=== PATIENT | female | born 1970 ===

== ENCOUNTER 2019-07-06 11:47 | Emergency (ER) | payer BC ==
[2019-07-06 12:27] VITALS: BP 160/93
--- NOTE | 2019-07-06 13:08 | UC ---
Abdominal Pain Female HPI - HPI Summary HPI Summary: Pt is a 48 yo female presents to with SO. Pt with urinary sx including pressure and frequency. She was started on Bactrim on 07/01. Pt states her sx persisted - she contacted PCP who changed to Omnicef. Pt states her urinary sx have improved but over last 48 hours she has had intermittent episodes of severe left flank pain. states sharp pain, wakes from sleep, gets nausea, can't get comfortable. pt has taken some ibuprofen with short term improvement. No history of similar. Pt's mom with renal colic. Current menses. no abd surgeries currently little pain medications reviewed this visit Of note - pt's urine + klebsiella - sensitive to both bactrim and omnicef - History of Current Complaint Chief Complaint: UCBackPain Stated Complaint: BACK PAIN Time Seen by Provider: 07/06/19 13:04 Hx Obtained From: Patient, Family/Cleaning Porter, Medical Records Hx Last Menstrual Period: now Pain Intensity: 6 Allergies/Adverse Reactions: Allergies Allergy/AdvReac Type Severity Reaction Status Date / Time ciprofloxacin [From Cipro] Allergy Rash And Verified 07/06/19 13:52 Itching Penicillins Allergy Rash Verified 07/06/19 13:52 PMH/Surg Hx/FS Hx/Imm Hx Previously Healthy: Yes - Surgical History Surgical History: Yes Surgery Procedure, Year, and Place: [place] [facility] [place] Family History Known Family History: Positive: Other - mom with renal colic - Social History Occupation: Employed Full-time Lives: With Family Alcohol Use: Occasionally Substance Use Type: None Smoking Status (MU): Never Smoked Tobacco Review of Systems All Other Systems Reviewed And Are Negative: Yes Constitutional: Positive: Negative Skin: Positive: Negative Gastrointestinal: Positive: Nausea Genitourinary: Positive: Dysuria, Urgency Physical Exam - Summary Physical Exam Summary: Vital Signs Reviewed: Yes A+Ox3, no distress Eyes: Conjunctiva Clear, JORGE. EOM intact and full ENT: Hearing grossly normal TM x 2 clear, mmoist, uvula midline, no exudate, no erythema Neck: Positive: Supple Respiratory: Positive: No respiratory distress, No accessory muscle use + CTA throughout no w/r Cardiovascular: RRR nl s1, s2 no m/r CBT <2 sec abd soft + BS nt/nd no guarding, no distension, no cva Musculoskeletal Exam: KEYS x 4 without difficulty Strength Intact, ROM Intact Neurological: Positive: Alert, + sensation throughout Psychological: Positive: Normal Response To crystal evaluator Skin: Positive: no rash, no ecchymosis Triage Information Reviewed: Yes Vital Signs: Initial Vital Signs Temp 97.9 F 07/06/19 12:22 Pulse 106 07/06/19 12:22 Resp 18 07/06/19 12:22 BP 160/93 07/06/19 12:22 Pulse Ox 100 07/06/19 12:22 Abd Pain Female Course/Dx - Course Course Of Treatment: Pt presents with intermittent left flank pain x 2 days pt is on omnicef for klebsiella UTI -was on bactrim, but sx persisted. culutre shows sensitivity to both abx no fever, chills. no h/o renal stones - mom does concerned pt may have infected stone recommend to ED for imaging and labs pt in agreement with plain report to Antonio - charge nurse in ED BP elevated - likely related to condition on presentation - recommend fu with pcp - Differential Dx/Diagnosis Provider Diagnosis: Flank pain, UTI due to Klebsiella species Discharge ED - Sign-Out/Discharge Documenting (check all that apply): Patient Departure All imaging exams completed and their final reports reviewed: No Studies - Discharge Plan Condition: Stable Disposition: HOME-RECOMMEND TO ED Patient Education Materials: Urinary Tract Infection in Women (ED), Flank Pain (ED) Referrals: Arsh Smalls MD [Primary Care Provider] - Additional Instructions: The doctor that evaluated you today thinks that you need additional testing that can be completed the emergency department. It is recommended that you go directly to emergency department for further evaluation. This evaluation may include blood work or imaging. This testing will be directed and decided by the provider that evaluate you at the emergency department. If pain becomes worse, you feel lightheaded, you have uncontrolled vomiting, or you have any other concerns while you are being driven to emergency department as recommended to pullover and contact 911. - Billing Disposition and Condition Condition: STABLE Disposition: Home-Recommend to ED
== END 2019-07-06 13:28 | disposition home health service (06) ==
LOC: UCEAST 11:47
DX: R10.9 Unspecified abdominal pain (principal); N39.0 Urinary tract infection, site not specified; B96.1 Klebsiella pneumoniae [K. pneumoniae] as the cause of diseases classified elsewhere; R11.0 Nausea; Z88.1 Allergy status to other antibiotic agents; Z88.0 Allergy status to penicillin
CPT/HCPCS: 81003; 84702; 87086; 99212; G0463

== ENCOUNTER 2019-07-06 13:46 | Observation (INO) | payer BC ==
[2019-07-06] MEDS ORDERED: Ketorolac INJ* 30 MG/ML 1 ML VIAL IV PUSH ONE (14:42)
--- NOTE | 2019-07-06 14:43 | ED ---
Back Pain - HPI Summary HPI Summary: Pt. is a 48 y.o female who presents to the ER for left-sided flank pain times one day. Patient states she was having symptoms of dysuria 5 days ago and saw her family doctor. She was started on Bactrim and then switched to cefdinir. Urine culture from 07/01 growing greater than 100,000 Klebsiella susceptible to Bactrim and cefdinir. Patient states she developed left flank pain today and initially went to convenient care was referred to the ER. Patient notes chills and nausea. Past medical history of obesity. Symptoms are moderate in severity. No current modifying factors. - History of Current Complaint Chief Complaint: EDFlankPain Stated Complaint: FLANK PAIN PER PT Time Seen by Provider: 07/06/19 14:31 Hx Obtained From: Patient Hx Last Menstrual Period: now Pain Intensity: 8 - Allergies/Home Medications Allergies/Adverse Reactions: Allergies Allergy/AdvReac Type Severity Reaction Status Date / Time ciprofloxacin [From Cipro] Allergy Rash And Verified 07/06/19 13:52 Itching Penicillins Allergy Rash Verified 07/06/19 13:52 PMH/Surg Hx/FS Hx/Imm Hx Previously Healthy: Yes Cardiovascular History: Denies: Other Cardiovascular Problems/Disorders Respiratory History: Denies: Other Respiratory Problems/Disorders GI History: Reports: Hx Gastroesophageal Reflux Disease - NOT FREQUENT Denies: Other GI Disorders History: Denies: Other Problems/Disorders Sensory History: Denies: Hx Contacts or Glasses, Hx Hearing Aid Opthamlomology History: Denies: Hx Contacts or Glasses Neurological History: Reports: Hx Migraine - 2-3 PER MONTH Denies: Other Neuro Impairments/Disorders - Surgical History Surgery Procedure, Year, and Place: LASER SURGERY TO FACE, 2007, [facility] – [place] Hx Anesthesia Reactions: No Infectious Disease History: No Infectious Disease History: Denies: Traveled Outside the [place] in Last 30 Days - Family History Known Family History: Positive: Non-Contributory - Social History Occupation: Unemployed Lives: With Family Alcohol Use: Occasionally Substance Use Type: Reports: None Smoking Status (MU): Never Smoked Tobacco Review of Systems Positive: Chills. Negative: Fever Eyes: Negative ENT: Negative Cardiovascular: Negative Respiratory: Negative Positive: Abdominal Pain, Nausea. Negative: Vomiting, Diarrhea Positive: flank pain. Negative: dysuria, discharge, frequency, hematuria Skin: Negative Neurological: Negative All Other Systems Reviewed And Are Negative: Yes Physical Exam Triage Information Reviewed: Yes Vital Signs On Initial Exam: Initial Vitals Temp Pulse Resp BP Pulse Ox 99.6 F 121 19 149/98 99 07/06/19 13:49 07/06/19 13:49 07/06/19 13:49 07/06/19 13:49 07/06/19 13:49 Vital Signs Reviewed: Yes Appearance: Positive: Well-Appearing - Pt. sitting on side of bed, appears mildly uncomfortable. Family member present. Skin: Positive: Warm, Dry Head/Face: Positive: Normal Head/Face Inspection Eyes: Positive: Normal, EOMI Neck: Positive: Supple Respiratory/Lung Sounds: Positive: Clear to Auscultation, Breath Sounds Present Cardiovascular: Positive: Normal, RRR Abdomen Description: Positive: Other: - Obese. Abd. is soft without tenderness. Mild left sided flank pain. Neurological: Positive: Normal, CN Intact II-III Psychiatric: Positive: Affect/Mood Appropriate Procedures - Sedation Patient Received Moderate/Deep Sedation with Procedure: No Diagnostics - Vital Signs Vital Signs Temp Pulse Resp BP Pulse Ox 07/06/19 13:49 99.6 F 121 19 149/98 99 - Laboratory Result Diagrams: 07/06/19 14:51 07/06/19 14:51 Lab Statement: Any lab studies that have been ordered have been reviewed, and results considered in the medical decision making process. Back Pain Course/Dx - Course Course Of Treatment: Patient with left flank pain. Tachycardic in the 120s, low -grade fever 99.6F. Patient was started on IV fluids given a dose of Toradol. CT abd/pelvis per radiology: IMPRESSION: Hepatic cysts. Left hydronephrosis with 3 mm calculus in the distal left ureter. Nonobstructing 1.5 cm staghorn calculi lower pole right kidney. CBC normal. Minimally elevated CRP. U/A is negative bacteria and nitrates but large leukocytes. Case discussed with Dr. Albarado, urology. He is concerned with ongoing sxs given 5 days of PO antibiotics. He would like pt. to have IV gent and rocephin and will plan to take to the OR tonight. Case discussed with Dr. Esposito, and she accepts pt. for admission. - Diagnoses Differential Diagnosis/HQI/PQRI: Positive: Renal Colic, Strain, Sprain Provider Diagnoses: UTI (urinary tract infection), Urolithiasis Discharge ED - Sign-Out/Discharge Documenting (check all that apply): Patient Departure - Discharge Plan Condition: Stable Disposition: ADMITTED TO [facility] Referrals: Arsh Smalls MD [Primary Care Provider] - - Billing Disposition and Condition Condition: STABLE Disposition: Admitted to [facility] - Attestation Statements Provider Attestation: I was available for consult. This patient was seen by the DERRICK. The patient was not presented to, seen by, or examined by me. Christofer Hobson MD
[2019-07-06 14:56] LABS: ABS Lymphocytes 0.9 10^3/ul (1.0-4.8); ABS Monocytes 0.6 10^3/ul (0-0.8); Eosinophil % 0.3 %; Hematocrit 40 % (35-47); Hemoglobin 13.3 g/dL (12.0-16.0); Lymphocyte % 10.7 %; Mean Corpuscular HGB Conc 33 g/dL (31-36); Mean Corpuscular Hemoglobin 25 pg (27-31); Mean Corpuscular Volume 76 fL (80-97); Mean Platelet Volume 8.2 fL (7.4-10.4); Nucleated Red Blood Cells % 0.1; Platelet Count 256 10^3/uL (150-450); Red Blood Count 5.23 10^6 /uL (3.70-4.87); Red Cell Distribution Width 15 % (10-15); White Blood Count 8.6 10^3/uL (3.5-10.8)
[2019-07-06 15:16] LABS: ALT 14 U/L (7-52); AST 13 U/L (13-39); Albumin 3.8 g/dL (3.2-5.2); Albumin/Globulin Ratio 1.4 (1-3); Alkaline Phosphatase 67 U/L (34-104); Anion Gap 6 mmol/L (2-11); BUN/Creatinine Ratio 18.8 (8-20); Blood Urea Nitrogen 12 mg/dL (6-24); CO2 Carbon Dioxide 23 mmol/L (22-32); Calcium 8.7 mg/dL (8.6-10.3); Chloride 109 mmol/L (101-111); EGFR African American 120.4 (>60); EGFR Non-African American 99.5 (>60); Globulin 2.7 g/dL (2-4); Glucose 103 mg/dL (70-100); Potassium 3.7 mmol/L (3.5-5.0); Sodium 138 mmol/L (135-145); Total Protein 6.5 g/dL (6.4-8.9)
[2019-07-06 15:22] LABS: HCG Pregnancy < 0.60 mIU/mL
[2019-07-06] MEDS ORDERED: NS 0.9% 1000 ML** 1,000 ML IV ONE ×2 (15:22→16:27)
[2019-07-06 16:01] LABS: Urine Appearance Cloudy; Urine Bacteria Absent (Absent); Urine Bilirubin Negative (Negative); Urine Blood 3+ (Negative); Urine Color Red; Urine Glucose Negative (Negative); Urine Ketones Negative (Negative); Urine Nitrite Negative (Negative); Urine Protein 2+(100 mg/dL) (Negative); Urine Red Blood Cell 3+(>10/hpf) (Absent); Urine Urobilinogen Negative (Negative); Urine White Blood Cell 3+(>20/hpf) (Absent)
[2019-07-06] MEDS ORDERED: Gentamicin ADULT (*) 40 MG/ML VIAL (2 ML VIAL = 80 MG) IVPB ONE (16:24)
[2019-07-06] MEDS ORDERED: cefTRIAXone(*) 2 GM in NS 0.9% 100 ML* 100 ML IVPB ONE (16:24)
[2019-07-06] MEDS ORDERED: Acetaminophen TAB* 325 MG PO PRN (16:41)
[2019-07-06] MEDS ORDERED: Ondansetron ODT TAB* 4 MG SL PRN ×2 (16:42→18:03)
[2019-07-06] MEDS ORDERED: Iohexol 180 (CONTRAST) 10 ML SDV IV ONE (16:51)
[2019-07-06] MEDS ORDERED: Buffered Lidocaine 1% SYRIN* 1 ML/SYRINGE INTRADERM ONE ×2 (17:52→18:35)
[2019-07-06] MEDS ORDERED: Gentamicin ADULT (*) 180 MG in NS 0.9% 100 ML* 100 ML IVPB ONE (18:00)
[2019-07-06] MEDS ORDERED: Midazolam* 1 MG/ML 2 ML VIAL (2 MG) ONE (18:17)
[2019-07-06] MEDS ORDERED: Famotidine IV* 10 MG/ML 2 ML (20 mg) ONE (18:34)
[2019-07-06] MEDS ORDERED: fentaNYL* 50 MCG/ML 2 ML VIAL (100 MCG VIAL) IV PRN (18:35)
[2019-07-06] MEDS ORDERED: Ondansetron INJ* 2 MG/ML VIAL IV PRN (18:35)
[2019-07-06] MEDS ORDERED: DiMENhydriNATE IV* 50 MG/ML VIAL IV PUSH PRN (18:35)
[2019-07-06] MEDS ORDERED: Naloxone* 0.4 MG/ML 1 ML VIAL IV PRN (18:35)
[2019-07-06] MEDS ORDERED: fentaNYL* 50 MCG/ML 2 ML VIAL (100 MCG VIAL) ONE (18:48)
[2019-07-06] MEDS ORDERED: Propofol* 10 MG/ML 20 ML BTL ONE (18:48)
[2019-07-06] MEDS ORDERED: Lidocaine 2% PF * 5 ML VIAL ONE (18:48)
[2019-07-06] MEDS ORDERED: Dexamethasone IV* 4 MG/ML 1 ML (4 MG) ONE (18:48)
[2019-07-06] MEDS ORDERED: KETAMINE HCL* 50 MG/ML 10 ML VIAL ONE (18:51)
[2019-07-06] MEDS ORDERED: diPHENhydraMINE IV* 50 MG/ML 1 ml VIAL (BENADRYL) ONE (18:55)
[2019-07-06] MEDS ORDERED: Lactated Ringers 1000 ML Bag* 1,000 ML IV SCH ×2 (19:00→22:00)
--- NOTE | 2019-07-06 19:42 | HP ---
CC: Dr. Smalls * HISTORY AND PHYSICAL: DATE OF ADMISSION: 07/06/19 PRIMARY CARE PHYSICIAN: Dr. Smalls. ATTENDING PHYSICIAN: Dr. Christiane Esposito * (dictation provided by Yumiko Oh NP ). CHIEF COMPLAINT: Left flank pain. HISTORY OF PRESENT ILLNESS: Ms. Ribeiro is a 48-year-old female with no significant past medical history, who recently had symptoms of dysuria and diagnosis of urinary tract infection approximately 6 to 7 days ago. Ms. Ribeiro states that she did have dysuria and pressure in her low abdomen and was seen by primary care physician's office, who did a urinalysis which was positive and therefore started her on Bactrim. The patient took Bactrim for 4 days. She initially felt better but then around day 4, she again felt the dysuria and abdominal pressure. She therefore called the office and was switched over to Cefdinir. The patient took Cefdinir for about 48 hours but today she developed left flank pain. She described it as an intermittent stabbing sensation. She is pain free at the moment but states that this is only because she has been given pain medication. She has no history of kidney stone or no other relevant past medical history. She states other than this she is doing well. She did have some nausea this morning but was able to tolerate oral intake. She has no further dysuria. In the emergency room, Ms. Ribeiro had labs which showed normal white blood cell count, CRP of 12.70. Her leuk esterase was 2, nitrite 0, blood 3+, protein 3+. She had an abdomen and pelvis CT, which showed left-sided hydronephrosis with a distal 3 mm calculus in the left ureter. Dr. Albarado has been called and he plans to retrieve the stone tonight. PAST MEDICAL HISTORY: None. MEDICATIONS: None. ALLERGIES: CIPROFLOXACIN and PENICILLIN. FAMILY HISTORY: The patient reports that her mother is alive and well but has dementia. Her dad has had a stroke and did have kidney failure, on dialysis and he has from the stroke. SOCIAL HISTORY: No report of tobacco use. The patient drinks alcohol very occasionally. No report of drug use. She lives with her , who is her healthcare proxy. REVIEW OF SYSTEMS: A 14-point review of systems was completed with Ms. Ribeiro and all that mentioned above were negative. PHYSICAL EXAMINATION GENERAL: Ms. Ribeiro is lying in the bed. She is in no acute distress. Her is at the bedside. VITAL SIGNS: Temperature 98.1, was initially 99.6 on arrival; pulse rate was initially 120, now is down to one teens; respiratory rate 16; O2 saturation 98% on room air; blood pressure 154/94. LUNGS: Clear to auscultation bilaterally with no accessory muscle use and good aeration. The abdomen is soft and nontender with bowel sounds positive x4. HEART: S1, S2. No murmur, rub, or gallop and regular. EXTREMITIES: No cyanosis, no edema. NEUROLOGIC: She is alert. She is oriented x3. She moves all extremities equally. There is no facial asymmetry or focal weakness. Extraocular movements are intact. SKIN: Intact. DIAGNOSTIC STUDIES/LAB DATA: White blood cell count 8.6, hemoglobin 13.3, hematocrit 40, platelet count 256. Sodium 138, potassium 3.7, chloride 109, serum bicarbonate 23, BUN 12, creatinine 0.64, glucose 103. CRP 12.70. Beta- hCG is less than 0.60. Urine shows 2+ protein and 3+ blood, 2+ leuk esterase. No bacteria, no nitrite. Again the CT abdomen and pelvis shows this left-sided hydronephrosis with a 3 mm distal left calculus. ASSESSMENT: Ms. Ribeiro is a 48-year-old female with no significant past medical history, who presents today to the hospital with recent urinary tract infection, now with flank pain and concern for 3 mm kidney stone with left- sided hydronephrosis. Our plans are for observation in the hospital for the followin. Nephrolithiasis with recent urinary tract infection and hydronephrosis. For patient's complicated UTI, she will be seen Dr. Per bermudez, who will be performing cystoscopy with stent placement. She has had ceftriaxone in the emergency room and will continue with that. I note that she did have a urine culture, which showed Klebsiella pneumoniae, which was sensitive to ceftriaxone. She will have pain medication p.r.n. She will have Zofran p.r.n. 2. DVT prophylaxis with SCDs. 3. Code status is full code. TIME SPENT: Approximately 60 minutes was spent on the admission of this patient ; more than half the time was spent with the patient at the bedside reviewing the events leading up to this hospitalization with her and her , performing the physical examination, and reviewing my plan of care. YUMIKO OH NP [id number]/[facility] #: [id number] FIDELINA
[2019-07-06] MEDS: Acetaminophen TAB* 325 MG PO PRN (22:23)
--- NOTE | 2019-07-06 23:33 | OP ---
CC: Dr. Arsh Smalls; Dr. Albarado OPERATIVE SUMMARY: DATE OF OPERATION: 07/06/19 DATE OF : 72 SURGEON: Eddie Albarado MD ANESTHESIOLOGIST: Dr. Lr. ANESTHESIA: Intravenous sedation. PRE-OP DIAGNOSES: 1. Calculus left ureter. 2. Left hydronephrosis. 3. Urinary tract infection. POST-OP DIAGNOSES: 1. Calculus left ureter. 2. Left hydronephrosis. 3. Urinary tract infection. SURGICAL PROCEDURE: Cystoscopy, left retrograde pyelogram and left stent insertion. COMPLICATIONS: None. STENT USED: 7-Niuean stent left ureter. POST-OP CONDITION: Stable. OPERATIVE FINDINGS: Left hydronephrosis. INDICATIONS: Yumiko Ribeiro is a 48-year-old lady who was evaluated in the emergency room for calculu s in the left distal ureter associated with urinary tract infection and sepsis. She is being brought in for urgent left stent insertion to be followed at some point in the near future by left ureterosc opy for definitive treatment of the calculus after treatment of the infection. DESCRIPTION OF PROCEDURE: After induction of intravenous sedation the patient was placed in dorsal l ithotomy position. Sequential compression devices were in place and functioning. Initial cystoscopy revealed a normal-appearing bladder. A guidewire was introduced into the left ureter, there was kevin e resistance a few centimeters above the ureterovesical junction consistent with the expected locatio n of the calculus. The wire was advanced proximally and retrograde pyelogram revealed fullness of th e left collecting system. A 7-Niuean stent was introduced and positioned under fluoroscopy with good proximal and distal positioning obtained. The bladder was emptied the patient tolerated the procedu re satisfactorily and was transferred back to the recovery area in stable condition. [id number]/[facility] #: [id number]
[2019-07-06] MEDS: oxyCODONE TAB* 5 MG TAB PO PRN (23:42)
[2019-07-07] MEDS: oxyCODONE TAB* 5 MG TAB PO PRN (04:59)
[2019-07-07] MEDS: Acetaminophen TAB* 325 MG PO PRN ×2 (04:59→13:17)
[2019-07-07] MEDS ORDERED: Influenza VAC *QUAD* 2019-20* 0.5 ML SYRINGE IM ONE (09:00)
--- NOTE | 2019-07-07 09:17 | PN ---
Subjective Date of Service: 07/07/19 Interval History: Admitted yesterday for kidney stone c/b hydronephrosis, in context of recent UTI. She was found with tachycardia (likely from pain) but without fever, leukocytosis, or elevated CRP. She is now s/p cystoscopy with L stent insertion by Dr. Laws last night. She feels well, is without flank pain or dysuria, and would like to go home. Objective Active Medications: Acetaminophen (Tylenol Tab*) 650 mg PO Q6H PRN PRN Reason: PAIN - MILD Last Admin: 07/07/19 04:59 Dose: 650 mg Cefdinir (Cefdinir Cap*) 300 mg PO BID IRASEMA Ondansetron HCl (Zofran Odt Tab*) 4 mg SL Q6H PRN PRN Reason: NAUSEA/VOMITING Oxycodone HCl (Roxycodone Tab*) 5 mg PO Q4H PRN PRN Reason: PAIN - SEVERE Last Admin: 07/07/19 04:59 Dose: 5 mg Vital Signs - 8 hr 07/07/19 07/07/19 07/07/19 01:30 02:40 04:59 Temperature 97.9 F Pulse Rate 92 Respiratory 16 18 16 Rate Blood Pressure 117/70 (mmHg) O2 Sat by Pulse 96 Oximetry 07/07/19 07/07/19 07/07/19 05:16 07:14 07:38 Temperature 98.1 F Pulse Rate 64 Respiratory 16 16 Rate Blood Pressure 148/84 (mmHg) O2 Sat by Pulse 96 100 Oximetry Oxygen Devices in Use Now: None Appearance: very pleasant well appearing woman in NAD Ears/Nose/Mouth/Throat: Clear Oropharnyx, Mucous Membranes Moist Neck: NL Appearance and Movements; NL JVP, Trachea Midline Respiratory: Symmetrical Chest Expansion and Respiratory Effort, Clear to Auscultation Cardiovascular: NL Sounds; No Murmurs; No JVD, RRR Abdominal: NL Sounds; No Tenderness; No Distention, No Hepatosplenomegaly, - - no CVA tenderness Extremities: No Edema Neurological: Alert and Oriented x 3 Result Diagrams: 07/06/19 14:51 07/06/19 14:51 Assess/Plan/Problems-Billing Assessment: 48 year old obese woman, otherwise healthy, presents after recent UTI with flank pain, found with L hydronephrosis, now s/p stent placement by urology. Continuing on antibiotics and ready to return home.
[2019-07-07] MEDS ORDERED: Cefdinir cap* 300 MG CAP PO SCH (10:00)
[2019-07-07 11:24] VITALS: BP 136/74
[2019-07-07] MEDS ORDERED: cefTRIAXone(*) 1 GM in NS 0.9% 50 ML* 50 ML IVPB SCH ×5 (13:00→15:00)
--- NOTE | 2019-07-07 16:38 | DS ---
CC: Dr. Arsh Smalls * DISCHARGE SUMMARY: DATE OF ADMISSION: 07/06/19 DATE OF DISCHARGE: 07/07/19 PRIMARY CARE PROVIDER: Dr. Arsh Smalls. PRIMARY DIAGNOSES: 1. Left-sided nephrolithiasis complicated by hydronephrosis. 2. Recent urinary tract infection. SECONDARY DIAGNOSIS: Morbid obesity. CONSULTATION: Dr. Albarado of Urology. PROCEDURES: Cystoscopy, left retrograde pyelogram, and left stent insertion on 07/07/19. DISCHARGE MEDICATIONS: Cefdinir 300 mg twice a day for 7 more days. HISTORY OF PRESENT ILLNESS: Ms. Ribeiro is a 48-year-old woman without significant past medical history, who is presenting with left flank pain. Approximately 5 days prior to presentation, the patient began experiencing symptoms of dysuria and she was diagnosed with urinary tract infection and given Bactrim. After 1 to 2 days on Bactrim, she did not feel improvement in her dysuria, so she was switched to cefdinir. Her dysuria was accompanied by pressure in her lower abdomen; however, on the morning of presentation, the patient developed left flank pain. She described it as an intermittent stabbing sensation. She has no history of kidney stone or other related past medical history. Other than left flank pain, she has been feeling well. She denies changes to her urine. She reported some nausea in the morning, but was able to tolerate p.o. She has had no further dysuria since switching to cefdinir. HOSPITAL COURSE: In the emergency room, Ms. Ribeiro had labs drawn, which showed normal white blood cell count, CRP of 13. Her urinalysis was significant for leukocyte esterase 2+, wbc's 3+, rbc's 3+, but negative nitrite and negative bacteria. CT abdomen and pelvis showed left-sided hydronephrosis with a distal 3 mm calculus in the left ureter. Dr. Albarado was called and he planned to take her to the operating room. She was initiated on ceftriaxone and gentamicin in the ER. The patient underwent procedure with Dr. Albarado that evening and had a left stent inserted. She tolerated the procedure well. By the next morning, the patient denied all symptoms including left flank pain, dysuria, or nausea. She was switched back to cefdinir p.o. to complete another 1 week course and to follow up in urology clinic with Dr. Per. PERTINENT DIAGNOSTIC STUDIES/LAB DATA: CBC notable for MCV 76, but with normal hemoglobin. BMP and LFTs unremarkable. CRP 12.7. Abdomen and pelvis CT with hepatic cyst, left hydronephrosis with a 3 mm calculus in the distal left ureter and obstructing 1.5 cm staghorn calculi in the lower pole of the right kidney. DISCHARGE PLAN: Ms. Ribeiro will follow up with her primary care physician as well as Dr. Albarado of Urology. Her PCP may consider a referral to Nephrology as the patient was also found to have a stone in her right kidney. She should continue on antibiotics for 7 more days. She was otherwise not placed on any medications and she reports no prior home medications besides recent antibiotics. She and her were educated on return precautions which include, but are not limited to new symptoms of fever and chills or recurrence in flank pain. She should eat a healthy diet, low in processed foods and low in carbohydrates and resume activity as tolerated. CONDITION: Good. DISPOSITION: To home. TIME SPENT: Approximately 60 minutes was spent on discharge of this patient, more than half of which was spent with care coordination at bedside for interview and exam. [id number]/[facility] #: [id number] FIDELINA
== END 2019-07-07 13:35 | disposition home or self-care (01) ==
LOC: ED 13:46 → SSU 20:28
PROVIDERS: ADMIT Internal Medicine; ATTEND Internal Medicine
DX: N13.2 Hydronephrosis with renal and ureteral calculous obstruction (principal); N39.0 Urinary tract infection, site not specified; E66.01 Morbid (severe) obesity due to excess calories; K21.9 Gastro-esophageal reflux disease without esophagitis; Z23 Encounter for immunization; Z88.0 Allergy status to penicillin
CPT/HCPCS: 36415; 74176; 74420; 80053; 81003; 81015; 84702; 85025; 86140; 90471; 90686; 96374; 99283; A9270-GY; G0008; G0378; J0696; J1100; J1200; J1580; J1885; J2250; J2704; J3010

== ENCOUNTER 2019-07-29 10:06 | Day surgery (SDC) | payer BC ==
[~2019-07-29 10:06] MED LIST: Buffered Lidocaine 1% SYRIN* 1 ML/SYRINGE INTRADERM ONE; Gentamicin ADULT (*) 160 MG in NS 0.9% 100 ML* 100 ML IVPB ONE; HYDROmorphone INJ1* 1 MG/ML SYRINGE IV PRN; Lactated Ringers 1000 ML Bag* 1,000 ML IV SCH; Naloxone* 0.4 MG/ML 1 ML VIAL IV PRN; Ondansetron INJ* 2 MG/ML VIAL IV PRN
[2019-07-29] MEDS ORDERED: Buffered Lidocaine 1% SYRIN* 1 ML/SYRINGE INTRADERM ONE (10:31)
[2019-07-29] MEDS ORDERED: Iohexol 180 (CONTRAST) 10 ML SDV IV ONE (11:17)
[2019-07-29] MEDS ORDERED: Propofol* 10 MG/ML 20 ML BTL ONE (11:43)
[2019-07-29] MEDS ORDERED: HYDROmorphone INJ1* 1 MG/ML SYRINGE ONE (11:43)
[2019-07-29] MEDS ORDERED: Acetaminophen TAB* 325 MG ONE (13:05)
[2019-07-29] MEDS ORDERED: Ondansetron INJ* 2 MG/ML VIAL ONE (14:00)
[2019-07-29 14:03] VITALS: BP 110/92
--- NOTE | 2019-07-30 02:31 | OP ---
CC: Dr. Arsh Smalls * DATE OF OPERATION: 07/29/19 - [facility] DATE OF : 72 SURGEON: Eddie Albarado MD ANESTHESIOLOGIST: Dr. Núñez. ANESTHESIA: General. PRE-OP DIAGNOSES: 1. Calculus, left ureter. 2. Left hydronephrosis. POST-OP DIAGNOSES: 1. Calculus, left ureter. 2. Left hydronephrosis. OPERATIVE PROCEDURE: Cystoscopy, left stent removal, left retrograde pyelogram , left ureteroscopy and stone extraction, and left stent insertion. COMPLICATIONS: None. STENT USED: 6-Serbian [place] stent, left ureter. OPERATIVE FINDINGS: 3 to 4 mm calculus, left distal ureter. POSTOPERATIVE CONDITION: Stable. INDICATIONS: Yumiko Ribeiro is a 48-year-old lady who had undergone urgent left stent insertion for an obstructing left ureteral calculus associated with sepsis. She is now being brought in for definitive treatment of the calculus. DESCRIPTION OF PROCEDURE: After induction of general anesthesia, the patient was placed in dorsal lithotomy position. Sequential compression devices were in place and functioning. Initial cystoscopy revealed a normal-appearing bladder with some expected inflammatory response around the left orifice. The previously placed stent was removed. Retrograde pyelogram revealed fullness of the left collecting system. A 6-Serbian semi-rigid ureteroscope was introduced and advanced into the left ureter. In the distal ureter, an approximately 3 to 4 mm calculus was identified which was engaged using a grasping forceps and removed and sent for analysis. No additional calculi were seen and a 6-Serbian stent was introduced and positioned under fluoroscopy with good proximal and distal positioning obtained. The patient tolerated the procedure satisfactorily and was transferred back to the recovery area in stable condition. [id number]/[facility] #: [id number] [facility]
== END 2019-07-29 15:02 | disposition home or self-care (01) ==
LOC: OR 10:06
PROVIDERS: ATTEND Urology
DX: N13.2 Hydronephrosis with renal and ureteral calculous obstruction (principal)
CPT/HCPCS: 74018; 74420; 81025; 82365; 88300; A9270-GY; C2617; J1170; J1580; J2405; J2704